=== PATIENT | male | born 1950 | race Caucasian/White ===

== ENCOUNTER 2024-10-15 09:12 | Emergency (ER) | payer MEDICARE, OTHER ==
[2024-10-15 09:29] VITALS: TEMP 97.6
[2024-10-15] MEDS: NORCO 5/325 MG PO ONE (09:45)
[2024-10-15] MEDS ORDERED: NORCO 5/325 MG ONE (09:45)
--- NOTE | 2024-10-15 09:46 | ERPHSYRPT ---
- History of Present Illness Source: patient Exam Limitations: no limitations Patient Subjective Stated Complaint: pt c/o of right lower back pain and timi medial back pain Triage Nursing Assessment: Pt brought to the ER by EMS, hyeprtensive, rates pain as 12/25, pt moved a picnic table approx 3 weeks ago and denies injury at that time but later that evening his back began to hurt, the pain has hurt more on some days and less on others but the pain has never went away, the pain woke him in the middle of the night last night and he couldn't stand or walk, pulses normal, skin n/w/d, no difficulty breathing, denies chest pain, pt has a hx of back surgery but it was in the lower medial back Physician History: About 3 weeks ago the patient was lifting a picnic table. He was lifting 1 side of it. He said he felt a catch in his mid back on the right side. It did not hurt that much at the time. Later on is the time went by after a day or 2 he began having pretty significant back pain. He does not have any radicular symptoms. Pain is mainly in the low rib area on the right side. It is in the paraspinal muscles. There is no really midline tenderness noted. He does not have much midline pain. It all seems to be located in that 1 area. Taking a deep breath and walking makes it worse. He has good and bad days. He is been taking a lot of ibuprofen. It helps minimally he says. He is having quite a bit of pain today so he decided to come in. There is been no other trauma after that. Allergies/Adverse Reactions: No Known Drug Allergies Allergy (Verified 10/15/24 09:16) Home Medications: Amlodipine Besylate [Norvasc] 10 mg PO DAILY 10/15/24 [History] Losartan/Hydrochlorothiazide [Losartan-Hctz 100-12.5 mg Tab] 1 each PO DAILY 10/15/24 [History] Tamsulosin HCl [Flomax] 0.4 mg PO DAILY 10/15/24 [History] Hx Influenza Vaccination/Date Given: No Hx Pneumococcal Vaccination/Date Given: Yes Travel Risk - International Travel Have you traveled outside of the country in past 3 weeks: No - Emerging Infectious Disease Are you exhibiting symptoms associated with any current EIDs: No - Review of Systems Constitutional: No Symptoms Eyes: No Symptoms Ears, Nose, & Throat: No Symptoms Musculoskeletal: Back Pain Skin: No Symptoms Neurological: No Symptoms Psychological: No Symptoms All Other Systems: Reviewed and Negative - Past Medical History Pertinent Past Medical History: Yes Cardiac History: Hypertension Male Reproductive Disorders: Prostate Problems - Past Surgical History Past Surgical History: Yes Musculoskeletal: Orthopedic Surgery Other Surgical History: back, timi shoulders, timi wrists - Social History Smoking Status: Current every day smoker Exposure to second hand smoke: Yes Drug Use: none - Social Determinants of Health Will the patient participate in the screening: Yes Do you worry about a steady place to live?: No Do you have any problems with any of the following?: No known problems In the past 12 months,have you had to go without utilities?: No Transportation Issues: No Has anyone in your support network made you feel unsafe?: No Have you or anyone in your house had to go w/o enough food: No - Nursing Vital Signs Nursing Vital Signs: Initial Vital Signs Temperature 97.6 F 10/15/24 09:18 Pulse Rate 68 10/15/24 09:18 Respiratory Rate 23 10/15/24 09:18 Blood Pressure 168/133 10/15/24 09:18 O2 Sat by Pulse Oximetry 94 L 10/15/24 09:18 Pain Scale Pain Intensity [Medial Back] 10 Pain Intensity 8 - Physical Exam General Appearance: no apparent distress Eye Exam: PERRL/EOMI Cardiovascular Exam: regular rate/rhythm Gastrointestinal Exam: soft Extremity Exam: normal inspection Neurologic Exam: alert, oriented x 3 Skin Exam: normal color, warm, dry SpO2: 92 Ordered Tests: Active Orders 24 hr Category Date Time Status LUMBAR COMPLETE (MIN 4 VIEWS) Stat Exams 10/15/24 09:43 Completed THORACIC SPINE (AP,LAT,SWIMM) Stat Exams 10/15/24 09:42 Completed Medication Summary Discontinued Medications Generic Name Dose Route Start Last Admin Trade Name Freq PRN Reason Stop Dose Admin Hydrocodone Bitart/Acetaminophen 2 tab 10/15/24 09:41 10/15/24 09:45 Hydrocodone/Apap 5/325 1 Tab Tablet PO 10/15/24 09:42 2 tab STAT ONE Administration Hydrocodone Bitart/Acetaminophen Confirm 10/15/24 09:45 Hydrocodone/Apap 5/325 1 Tab Tablet Administered 10/15/24 09:46 Dose 2 tab .ROUTE .STK-MED ONE - Progress Progress: improved Progress Note: Patient was stable throughout stay. I am not thinking that it is a herniated disc. His pain is more in the thoracic area. He does not have any radicular symptoms. I think it might be more of a acute soft tissue injury. I got x-rays of his L-spine and T-spine. That did not show any compression fractures or any abnormalities that were new. I discussed with the patient should do after this. Would have him follow-up with his primary doctor and he could refer him to physical therapy and/or pain management. When to send him home with some scripts for [place] and prednisone. I gave him Solu-Medrol here as well as some Dilaudid. He got [place] earlier and that did not seem to help. 10/15/24 10:31 - Departure Departure Disposition: Home Clinical Impression: Thoracic back pain Condition: Stable Critical Care Time: No Referrals: KAYLAH EVANS MD [Primary Care Provider, [facility]] - Follow up/PCP as directed Instructions: Upper back pain
--- NOTE | 2024-10-15 10:21 | XRAY ---
Indication: Back pain. No known injury. Comparison: None 5 view lumbar spine demonstrates 5 lumbar segments with osteopenia, mild levoscoliosis centered at L3, mild/moderate multilevel degenerative spondylosis, and moderate aortic calcifications. No acute bony, articular, or soft tissue abnormalities.
--- NOTE | 2024-10-15 10:21 | XRAY ---
Indication: Back pain. No known injury. Comparison: None AP/lateral thoracic spine demonstrates 12 rib-bearing segments with osteopenia, minimal dextroscoliosis centered at T7, mild/moderate multilevel degenerative spondylosis, and mild aortic calcifications. No acute bony, articular, or soft tissue abnormalities.
[2024-10-15] MEDS ORDERED: Sterile H2O 10 ml IJ ONE (10:33)
[2024-10-15] MEDS ORDERED: Hydromorphone 1 mg/ml Injection ONE (10:33)
[2024-10-15] MEDS: solu-MEDROL 125 MG, Sterile H2O 10 ml 2 ML IV ONE (10:47)
[2024-10-15] MEDS: Hydromorphone 1 mg/ml Injection IV ONE (10:50)
[2024-10-15 11:07] VITALS: O2SAT 94
[2024-10-15 12:03] LABS: BASOPHIL % 0.6 % (0.2-1.2); Basophil (Absolute #) 0.06 x10^3/uL (0.01-0.08); Eosinophil (Absolute #) 0.45 x10^3/uL (0.04-0.54); Hematocrit 48.5 % (40.1-51.0); Hemoglobin 15.9 g/dL (13.7-17.5); IMMATURE GRAN # 0.08 x10^3u/L (0.001-0.031); IMMATURE GRAN % 0.8 % (0.001-0.429); Lymphocyte (Absolute #) 1.92 x10^3/uL (1.32-3.57); Mean Corpuscular Hemoglobin 30.6 pg (25.7-32.2); Mean Corpuscular Hgb Concent. 32.8 g/dL (32.3-36.5); Monocyte (Absolute #) 0.94 x10^3/uL (0.30-0.82); NUCLEATED RBC # 0.00 x10^3u/L (0.00-0.012); NUCLEATED RBC % 0.0 % (0.00-0.2); Platelet Count 192 x10^3/uL (163-337); Red Blood Count 5.19 x10^6/uL (4.63-6.08); White Blood Count 10.5 x10^3/uL (4.23-9.07)
[2024-10-15 12:16] LABS: Calcium 10.6 mg/dL (8.4-10.2); Carbon Dioxide 27.0 mmol/L (22-30); Creatinine 1 1.87 mg/dL (0.66-1.25); EST GLOMERULAR FILTRATION RATE 36.8 ML/MIN; Glucose 99.0 mg/dL (74-106); Potassium 4.6 mmol/L (3.5-5.1)
[2024-10-15 12:27] LABS: Glucose, Urine Negative (Negative); Protein,Urine Dip 30 (Negative); RBC 0-2 /HPF (0-5); WBC 0-2 /HPF (0-5)
--- NOTE | 2024-10-15 13:32 | XRAY ---
Indication: Flank pain. Multiple contiguous axial images obtained through the abdomen and pelvis without contrast using renal stone protocol. Comparison: None Lung bases demonstrates incompletely visualized small left and tiny right effusions with mild compressive atelectasis. Heart not enlarged. No renal calculus or evidence for obstructive uropathy in either system. 3 cm left mid renal cortical cyst. Enlarged/nodular prostate gland impresses on the base of the bladder. Posterior urinary bladder demonstrates a bilobed noncalcified soft tissue mass measuring at least 3.5 x 4.4 cm in greatest axial dimension worrisome for malignancy. Noncontrasted stomach and bowel loops appear nonobstructed with normal appendix. There is mild diffuse scattered colonic fecal debris and mild scattered sigmoid diverticulosis. A few incidental tiny hepatic/splenic calcified granulomas and 1 cm left lobe hepatic cyst. No free fluid/air. Remaining liver, gallbladder, pancreas, spleen, adrenal glands, kidneys, ureters, and bladder are unremarkable for noncontrast exam. Mild scattered aortoiliac calcifications without AAA. Additional mild vascular calcifications origin left main renal and right intrarenal arteries. Osseous structures intact with osteopenia, mild/moderate multilevel thoracolumbar degenerative spondylosis, and mild lumbar levoscoliosis centered at L3. Small fatty bilateral inguinal hernias. Impression: 1. Negative renal calculus or evidence for obstructive uropathy. 2. Posterior urinary bladder mass as detailed worrisome for malignancy. 3. Incompletely visualized small left and tiny right effusions without cardiomegaly. 4. Incidental mild diffuse fecal stasis. 5. Chronic findings including left renal cyst, hepatic cyst, sigmoid diverticulosis, arteriosclerotic disease, chronic bony findings, fatty bilateral inguinal hernias, and old granulomatous disease.
[2024-10-15 14:01] VITALS: BP 148/77; PULSE 68; RESP 18
== END 2024-10-15 14:00 | disposition home or self-care (01) ==
LOC: ED 09:12
DX: M54.6 Pain in thoracic spine (principal); I10 Essential (primary) hypertension; Z79.899 Other long term (current) drug therapy; Z72.0 Tobacco use